=== PATIENT | female | born 1945 | race Caucasian/White ===

== ENCOUNTER → 2016-05-14 | Outpatient (CLI) | payer OTHER, MEDICARE | LOC: MMPC 09:00 | PROVIDERS: ATTEND Physician Assistant Medical | DX: J04.0 Acute laryngitis (principal); Z87.891 Personal history of nicotine dependence | CPT/HCPCS: 99213; G0463 ==

== ENCOUNTER → 2016-06-07 | Outpatient (CLI) | payer OTHER, MEDICARE ==
--- NOTE | 2016-06-07 14:50 | EKG ---
[address] [address] Measurements Intervals [place] Rate: 67 P: 67 GA: 192 QRS: 8 QRSD: 81 T: 61 QT: 391 QTc: 406 Interpretive Statements SINUS RHYTHM No previous ECG available for comparison Electronically Signed On [email or web address] 15:24:09 MDT by Du Michelle [email or web address]
[2016-06-07 17:11] LABS: HEMATOCRIT 39.6 % (37.0-47.0); HEMOGLOBIN 13.2 g/dL (12.0-16.0); MEAN CORPUSCULAR HEMOGLOBIN 30.1 PG (27-31); MEAN CORPUSCULAR HGB CONC 33.3 g/dL (33-37); MEAN CORPUSCULAR VOLUME 90.4 FL (81-99); MEAN PLATELET VOLUME 10.5 FL (7.4-12.2); RED BLOOD COUNT 4.38 10^6/uL (4.20-5.40)
[2016-06-07 17:23] LABS: BUN/CREATININE RATIO 31.11 (6-20); CALCIUM 9.5 mg/dL (8.7-10.7)
== END ==
LOC: MOB EKG 14:34
PROVIDERS: ATTEND Student in an Organized Health Care Education/Training Program
DX: H25.89 Other age-related cataract (principal); I10 Essential (primary) hypertension
CPT/HCPCS: 36415; 80048; 85027; 93005; 93010; 99213; G0463